=== PATIENT | female | born 1990 | race Caucasian/White ===

== ENCOUNTER → 2020-02-06 | Outpatient (CLI) | payer OTHER ==
--- NOTE | 2020-02-06 08:36 | CT ---
EXAMINATION TYPE: CT mastoid wo con DATE OF EXAM: 02/06/2020 COMPARISON: None HISTORY: 29 year-old female H70.12, Chronic Lt side mastoiditis CT DLP: 150 mGycm Automated exposure control for dose reduction was used. TECHNIQUE: Contiguous high-resolution axial scanning of the temporal bones performed without contras t. Coronal reformatted images obtained. FINDINGS: Limited assessment of the intracranial structures due to thin section noncontrast technique optimized for the temporal bones. The skull base appears normal. External auditory canals are patent. The middle ear cavities are well pneumatized. There is opacification of the mid and inferior left mastoid air cells. No erosions of the osseous sep ta. Minimal fluid within the inferior right mastoid air cells. There is some asymmetric sclerotic dolores nges to the left mastoid process. There is no abnormality of middle ear ossicles. The round and oval windows are normal. There is no abnormality of bony labyrinths. The vestibular and cochlear aqueducts are well visualized. The facial nerve canal is normal bilaterally. The internal auditory canal and meati are symmetrical bilaterally. There is no evidence of fractures. Trace mucosal thickening ethmoid air cells and left maxillary sinus. Reformatted images confirm above findings. IMPRESSION: 1. Opacification throughout the mid and inferior left mastoid air cells. Given asymmetric left-sided mastoid process sclerosis, findings suggest long-standing mastoiditis. No osseous erosions or destruc tion of the osseous septa. 2. Trace fluid within the inferior right mastoid air cells. 3. The middle ear cavities remain clear.
== END | disposition home or self-care (01) ==
LOC: RADCTMAIN 06:45
PROVIDERS: ATTEND Otolaryngology
DX: H93.8X2 Other specified disorders of left ear (principal); H70.12 Chronic mastoiditis, left ear
CPT/HCPCS: 70486

== ENCOUNTER 2020-07-14 20:16 | Emergency (ER) | payer OTHER ==
[2020-07-14 20:31] VITALS: RESP 18
[2020-07-14 21:45] LABS: Basophils # (A) 0.1 k/uL (0-0.2); Basophils % (A) 1 %; Eosinophils # (A) 0.2 k/uL (0-0.7); Eosinophils % (A) 2 %; HCT 45.2 % (34.0-46.0); HGB 14.2 gm/dL (11.4-16.0); Lymphocytes # (A) 2.1 k/uL (1.0-4.8); Lymphocytes % (A) 23 %; MCH 28.3 pg (25.0-35.0); MCHC 31.5 g/dL (31.0-37.0); MCV 89.7 fL (80.0-100.0); Mean Platelet Volume 8.6; Monocytes # (A) 0.5 k/uL (0-1.0); Monocytes % (A) 5 %; Neutrophils # (A) 6.4 k/uL (1.3-7.7); Neutrophils % (A) 67 %; Platelet Count 232 k/uL (150-450); RBC 5.03 m/uL (3.80-5.40); RDW 13.2 % (11.5-15.5); WBC 9.5 k/uL (3.8-10.6)
[2020-07-14 21:54] LABS: ALT 63 U/L (4-34); AST 52 U/L (14-36); African American GFR (CKD) >90 (>60 ml/min/1.73 sqM); Albumin 4.2 g/dL (3.5-5.0); Alkaline Phosphatase 73 U/L (38-126); Anion Gap 7 mmol/L; Blood Urea Nitrogen 11 mg/dL (7-17); Calcium 9.7 mg/dL (8.4-10.2); Carbon Dioxide 25 mmol/L (22-30); Chloride 107 mmol/L (98-107); Glucose 96 mg/dL (74-99); Lipase 53 U/L (23-300); Magnesium 1.8 mg/dL (1.6-2.3); Non-African American GFR(CKD) >90 (>60 ml/min/1.73 sqM); Potassium 4.3 mmol/L (3.5-5.1); Sodium 139 mmol/L (137-145); Total Bilirubin 0.7 mg/dL (0.2-1.3); Total Protein 7.2 g/dL (6.3-8.2)
--- NOTE | 2020-07-14 21:54 | XR ---
EXAMINATION TYPE: XR chest 2V DATE OF EXAM: 07/14/2020 COMPARISON: NONE HISTORY: Chest pain TECHNIQUE: FINDINGS: Heart and mediastinum are normal. Lungs are clear. Diaphragm is normal. Bony thorax appears normal. IMPRESSION: Normal chest.
[2020-07-14 21:58] LABS: D-Dimer 0.22 mg/L FEU (<0.60); Partial Thromboplastin Time 23.9 sec (22.0-30.0); Prothrombin Time 10.4 sec (9.0-12.0)
--- NOTE | 2020-07-14 22:38 | ED ---
Chest Pain HPI - General Chief Complaint: Chest Pain Stated Complaint: Chest Pain Source: patient Mode of arrival: ambulatory Limitations: no limitations - History of Present Illness Initial Comments: 29-year-old female past history of anxiety disorder presents emergency room with reported chest pain. Patient states that she will intermittently get chest pain. States that she has had 3 episodes this week. Chest pain started today earlier in the day. Describes it as left-sided which is sharp and shooting. Denies any provocative factors. Does have associated mild shortness of breath. No ripping or tearing sensation to her back. No previous history of cardiac disease. No lower externally swelling. No history of DVT or PE. No family history of blood clotting disorders. No family history of sudden cardiac . No concern for . No recent car rides. The patient is not on any control. No other alleviating, precipitating or modifying factors - Related Data Home Medications Medication Instructions Recorded Confirmed HYDROcodone/APAP 5-325MG [[place] 1 tab PO BID PRN 12/03/17 07/14/20 5-325] Allergies Allergy/AdvReac Type Severity Reaction Status Date / Time Penicillins Allergy Rash/Hives Verified 07/14/20 22:55 Review of Systems ROS Statement: Those systems with pertinent positive or pertinent negative responses have been documented in the HPI. ROS Other: All systems not noted in ROS Statement are negative. EKG Findings - EKG Comments: EKG Findings:: EKG demonstrates normal sinus rhythm with a ventricular rate of 91. MO interval 148. QRS 92. QTC 450. No acute ST segment elevations or depressions concerning for ischemic changes Past Medical History Past Medical History: No Reported History History of Any Multi-Drug Resistant Organisms: None Reported Past Surgical History: Adenoidectomy Past Psychological History: No Psychological Hx Reported Smoking Status: Former smoker Past Alcohol Use History: Occasional Past Drug Use History: None Reported General Exam Limitations: no limitations Course Vital Signs 07/14/20 07/14/20 07/14/20 20:27 21:00 22:00 Temperature 97.9 F Pulse Rate 90 75 74 Respiratory 18 18 18 Rate Blood Pressure 131/85 112/80 119/76 O2 Sat by Pulse 99 97 97 Oximetry 07/14/20 23:17 Temperature 98.0 F Pulse Rate 80 Respiratory 18 Rate Blood Pressure 126/72 O2 Sat by Pulse 97 Oximetry Chest Pain MDM - MDM Upon arrival patient is placed in room 17. There are history of physical exam is performed. Patient to continuous pulse ox and cardiac monitoring. 12-lead EKG is performed. Laboratory studies are conducted. D-dimer negative. Troponin negative. Chest x-ray demonstrates no acute process. Results are discussed the patient. Did recommend she follow up with her primary care doctor for Holter monitoring and echo. Patient understood this. Return to the emergency room for any new or worsening symptoms. Patient given written and verbal discharge instructions and discharged home in stable condition Disposition Clinical Impression: Chest pain Disposition: HOME SELF-CARE Condition: Stable Instructions (If sedation given, give patient instructions): Chest Pain (ED) Additional Instructions: I recommend you follow up with primary care doctor within 2-4 days. You should have Holter monitoring and echo of her heart. Return to the emergency room for any new or worsening symptoms Is patient prescribed a controlled substance at d/c from ED?: No Referrals: Stanford Moya MD [Primary Care Provider] - 1-2 days Time of Disposition: 22:45
[2020-07-14 23:21] VITALS: BP 126/72; PULSE 80; TEMP 98
== END 2020-07-14 23:17 | disposition home or self-care (01) ==
LOC: EC 20:16
DX: R07.9 Chest pain, unspecified (principal); Z88.0 Allergy status to penicillin; Z87.891 Personal history of nicotine dependence
CPT/HCPCS: 36415; 71046; 80053; 83690; 83735; 84484; 85025; 85379; 85610; 85730; 93005; 99285

== ENCOUNTER 2021-01-26 23:10 | Emergency (ER) | payer OTHER ==
[2021-01-26 23:17] VITALS: BP 148/96; PULSE 75; RESP 18; TEMP 99.3
--- NOTE | 2021-01-27 00:32 | ED ---
Head Injury HPI - General Chief complaint: Head Injury Stated complaint: Head Injury, Headache Time Seen by Provider: 01/26/21 23:31 Source: patient Mode of arrival: ambulatory Limitations: no limitations - History of Present Illness Initial comments: 30-year-old female patient presents to the emergency department today for evaluation of headache after head injury. States that around 8 PM this evening she hit her head on the garcia window of her vehicle. States that she felt disoriented and had difficulty focusing her vision after the injury. States when she got home she developed a headache that has gradually worsened. She took a norco without relief. She reports nausea no vomiting. Denies numbness, tingling, weakness to her extremities. Denies any dizziness or weakness. - Related Data Home Medications Medication Instructions Recorded Confirmed HYDROcodone/APAP 5-325MG [[place] 1 tab PO BID PRN 12/03/17 07/14/20 5-325] Allergies/Adverse reactions: Allergies Allergy/AdvReac Type Severity Reaction Status Date / Time Penicillins Allergy Rash/Hives Verified 01/26/21 23:17 Review of Systems ROS Statement: Those systems with pertinent positive or pertinent negative responses have been documented in the HPI. ROS Other: All systems not noted in ROS Statement are negative. Past Medical History Past Medical History: No Reported History History of Any Multi-Drug Resistant Organisms: None Reported Past Surgical History: Adenoidectomy Past Psychological History: No Psychological Hx Reported Smoking Status: Former smoker Past Alcohol Use History: Occasional Past Drug Use History: Marijuana General Exam Limitations: no limitations General appearance: alert, in no apparent distress, other (This is a well- developed, well-nourished adult female patient in no acute distress.) Eye exam: Present: normal appearance, PERRL, EOMI. Absent: scleral icterus, conjunctival injection, nystagmus, periorbital swelling ENT exam: Present: normal exam, normal oropharynx, mucous membranes moist Neck exam: Present: normal inspection, full ROM, other (Nontender, no step-off, no deformity to firm midline palpation of the posterior cervical spine. Full range of motion without pain or limitation.). Absent: tenderness, meningismus, lymphadenopathy Cardiovascular Exam: Present: regular rate, normal rhythm, normal heart sounds. Absent: systolic murmur, diastolic murmur, rubs, gallop, clicks GI/Abdominal exam: Present: soft, normal bowel sounds. Absent: distended, tenderness, guarding, rebound, rigid Neurological exam: Present: alert, oriented X3, CN II-XII intact Expanded Speech: Present: fluid speech Cranial nerves: EOM's Intact: Normal, Nystagmus: Normal Motor strength exam: RUE: 5, LUE: 5, RLE: 5, LLE: 5 Eye Response: (4) open spontaneously Motor Response: (6) obeys commands Verbal Response: (5) oriented Shruthi Total: 15 Psychiatric exam: Present: normal affect, normal mood Skin exam: Present: warm, dry, intact, normal color. Absent: rash Course Vital Signs 01/26/21 23:13 Temperature 99.3 F Pulse Rate 75 Respiratory 18 Rate Blood Pressure 148/96 O2 Sat by Pulse 97 Oximetry Medical Decision Making - Medical Decision Making 30-year-old female patient presents to the emergency department today for evaluation after head injury. She is reporting headache, nausea, vision difficulty. Physical examination is unremarkable. She is neurologically intact. CT brain was negative. She is given dose of Toradol. She'll be discharged home to follow-up with her primary care physician for recheck in 1-2 days. She is given concussion precautions. Return parameters discussed in detail. She verbalizes understanding and agrees with this plan. I attending is Dr. Pittman. - Radiology Data Radiology results: report reviewed, image reviewed CT brain without contrast was obtained. Report was reviewed in its entirety. Impression by Dr. Bay shows negative unenhanced head CT scan. Disposition Clinical Impression: Concussion Disposition: HOME SELF-CARE Condition: Good Instructions (If sedation given, give patient instructions): Concussion (ED) Additional Instructions: Rest. Increase fluids. Take Tylenol Motrin for pain control. Follow-up with the primary care physician for recheck in 1-2 days. Return for any new, worsening, or concerning symptoms. Is patient prescribed a controlled substance at d/c from ED?: No Referrals: Stanford Moya MD [Primary Care Provider] - 1-2 days Time of Disposition: 00:48
--- NOTE | 2021-01-27 00:43 | CT ---
EXAMINATION TYPE: CT brain wo con DATE OF EXAM: 01/27/2021 COMPARISON: None HISTORY: hit right side of head on tailgate. headache. no prior on PACS CT DLP: 1076.4 mGycm Automated exposure control for dose reduction was used. Images obtained of the brain without contrast. Ventricles have normal size. There is no mass effect nor midline shift. There is no sign of intracran ial hemorrhage. Calvarium is intact. There is previous surgery left mastoid sinus noted. IMPRESSION: Negative unenhanced head CT scan.
[2021-01-27] MEDS ORDERED: KETOROLAC 15 MG/ML 1 ML VIAL IM STA (00:46)
== END 2021-01-27 00:59 | disposition home or self-care (01) ==
LOC: EC 23:10
DX: S06.0X9A Concussion with loss of consciousness of unspecified duration, initial encounter (principal); F12.90 Cannabis use, unspecified, uncomplicated; Z87.891 Personal history of nicotine dependence; Z88.0 Allergy status to penicillin; W22.8XXA Striking against or struck by other objects, initial encounter
CPT/HCPCS: 99283; 70450; 96372; J1885

== ENCOUNTER 2021-04-25 09:26 | Emergency (ER) | payer OTHER ==
[2021-04-25] MEDS ORDERED: SODIUM CHLORIDE 0.9% 1,000 ML IV STA (10:05)
[2021-04-25] MEDS ORDERED: ONDANSETRON 4 MG/2 ML VIAL IVP STA (10:05)
[2021-04-25] MEDS ORDERED: KETOROLAC 15 MG/ML 1 ML VIAL IVP STA (10:05)
[2021-04-25] MEDS ORDERED: MECLIZINE 12.5 MG TAB PO STA (10:05)
--- NOTE | 2021-04-25 10:08 | ED ---
General Adult HPI - General Chief complaint: Dizziness Stated complaint: Dizziness, nausea Time Seen by Provider: 04/25/21 09:36 Source: patient, RN notes reviewed Mode of arrival: wheelchair Limitations: no limitations - History of Present Illness Initial comments: 30-year-old female presents emergency department with chief complaint of dizziness. Patient states symptoms started last night. Patient states she was nauseated started having room spinning this. Patient states that she does have some achiness all over mild congestion. Patient states that she believes this is from prior and issues. She has no complaints of headache currently no julissa rred. Patient does admit to nausea no recent vomiting episode. No fevers or chills denies any chance no localized abdominal pain states she has mild cramping related to her mental cycle. - Related Data Home Medications Medication Instructions Recorded Confirmed HYDROcodone/APAP 5-325MG [[place] 1 tab PO BID PRN 12/03/17 04/25/21 5-325] Previous Rx's Medication Instructions Recorded Meclizine [Antivert] 25 mg PO TID PRN #15 tab 04/25/21 Ondansetron Odt [Zofran Odt] 4 mg PO Q8HR PRN #10 tab 04/25/21 Allergies Allergy/AdvReac Type Severity Reaction Status Date / Time Penicillins Allergy Rash/Hives Verified 04/25/21 10:31 Review of Systems ROS Statement: Those systems with pertinent positive or pertinent negative responses have been documented in the HPI. ROS Other: All systems not noted in ROS Statement are negative. Past Medical History Past Medical History: No Reported History History of Any Multi-Drug Resistant Organisms: None Reported Past Surgical History: Adenoidectomy, Ear Surgery Additional Past Surgical History / Comment(s): mastoidectomy typanial plastomy and eustanial tube dilation lt Past Psychological History: No Psychological Hx Reported Smoking Status: Former smoker Past Alcohol Use History: Occasional Past Drug Use History: Marijuana General Exam Limitations: no limitations, physical limitation General appearance: alert, in no apparent distress Head exam: Present: atraumatic, normocephalic, normal inspection Eye exam: Present: normal appearance, PERRL, EOMI. Absent: scleral icterus, conjunctival injection, periorbital swelling ENT exam: Present: normal exam, normal oropharynx, mucous membranes moist Neck exam: Present: normal inspection, full ROM. Absent: tenderness, meningismus, lymphadenopathy Respiratory exam: Present: normal lung sounds bilaterally. Absent: respiratory distress, wheezes, rales, rhonchi, stridor Cardiovascular Exam: Present: regular rate, normal rhythm, normal heart sounds. Absent: systolic murmur, diastolic murmur, rubs, gallop, clicks GI/Abdominal exam: Present: soft, normal bowel sounds. Absent: distended, tenderness, guarding, rebound, rigid Neurological exam: Present: alert, oriented X3, CN II-XII intact, reflexes normal. Absent: motor sensory deficit Skin exam: Present: warm, dry, intact, normal color. Absent: rash Course Vital Signs 04/25/21 04/25/21 09:30 10:30 Temperature 98.1 F Pulse Rate 106 H 89 Respiratory 18 20 Rate Blood Pressure 122/88 124/79 O2 Sat by Pulse 97 97 Oximetry Medical Decision Making - Medical Decision Making 30-year-old female presented from for dizziness. Symptoms are improving at and antiemetics. Symptoms secondary to vertigo. Labs unremarkable patient disch arged in stable condition. - Lab Data Result diagrams: 04/25/21 10:06 04/25/21 10:06 Lab Results 04/25/21 04/25/21 04/25/21 Range/Units 10:06 10:06 10:29 WBC 10.5 (3.8-10.6) k/uL RBC 4.96 (3.80-5.40) m/uL Hgb 15.4 (11.4-16.0) gm/dL Hct 46.5 H (34.0-46.0) % MCV 93.6 (80.0-100.0) fL MCH 31.0 (25.0-35.0) pg MCHC 33.2 (31.0-37.0) g/dL RDW 12.7 (11.5-15.5) % Plt Count 178 (150-450) k/uL MPV 10.2 Neutrophils % 91 % Lymphocytes % 4 % Monocytes % 4 % Eosinophils % 1 % Basophils % 0 % Neutrophils # 9.6 H (1.3-7.7) k/uL Lymphocytes # 0.4 L (1.0-4.8) k/uL Monocytes # 0.4 (0-1.0) k/uL Eosinophils # 0.1 (0-0.7) k/uL Basophils # 0.0 (0-0.2) k/uL Sodium 138 (137-145) mmol/L Potassium 4.7 (3.5-5.1) mmol/L Chloride 111 H (98-107) mmol/L Carbon Dioxide 18 L (22-30) mmol/L Anion Gap 9 mmol/L BUN 11 (7-17) mg/dL Creatinine 0.69 (0.52-1.04) mg/dL Est GFR (CKD-EPI)AfAm >90 (>60 ml/min/1.73 sqM) Est GFR (CKD-EPI)NonAf >90 (>60 ml/min/1.73 sqM) Glucose 116 H (74-99) mg/dL Calcium 9.1 (8.4-10.2) mg/dL Magnesium 1.7 (1.6-2.3) mg/dL Total Bilirubin 1.8 H (0.2-1.3) mg/dL AST 35 (14-36) U/L ALT 27 (4-34) U/L Alkaline Phosphatase 79 (38-126) U/L Total Protein 7.4 (6.3-8.2) g/dL Albumin 4.1 (3.5-5.0) g/dL Urine Color Urine Appearance (Clear) Urine pH (5.0-8.0) Ur Specific [place] (1.001-1.035) Urine Protein (Negative) Urine Glucose (UA) (Negative) Urine Ketones (Negative) Urine Blood (Negative) Urine Nitrite (Negative) Urine Bilirubin (Negative) Urine Urobilinogen (<2.0) mg/dL Ur Leukocyte Esterase (Negative) Urine RBC (0-5) /hpf Urine WBC (0-5) /hpf Ur Squamous Epith Cells (0-4) /hpf Urine Bacteria (None) /hpf Urine Mucus (None) /hpf Urine HCG, Qual (Not Detectd) Coronavirus (PCR) Not Detected (Not Detectd) 04/25/21 04/25/21 Range/Units 10:45 10:45 WBC (3.8-10.6) k/uL RBC (3.80-5.40) m/uL Hgb (11.4-16.0) gm/dL Hct (34.0-46.0) % MCV (80.0-100.0) fL MCH (25.0-35.0) pg MCHC (31.0-37.0) g/dL RDW (11.5-15.5) % Plt Count (150-450) k/uL MPV Neutrophils % % Lymphocytes % % Monocytes % % Eosinophils % % Basophils % % Neutrophils # (1.3-7.7) k/uL Lymphocytes # (1.0-4.8) k/uL Monocytes # (0-1.0) k/uL Eosinophils # (0-0.7) k/uL Basophils # (0-0.2) k/uL Sodium (137-145) mmol/L Potassium (3.5-5.1) mmol/L Chloride (98-107) mmol/L Carbon Dioxide (22-30) mmol/L Anion Gap mmol/L BUN (7-17) mg/dL Creatinine (0.52-1.04) mg/dL Est GFR (CKD-EPI)AfAm (>60 ml/min/1.73 sqM) Est GFR (CKD-EPI)NonAf (>60 ml/min/1.73 sqM) Glucose (74-99) mg/dL Calcium (8.4-10.2) mg/dL Magnesium (1.6-2.3) mg/dL Total Bilirubin (0.2-1.3) mg/dL AST (14-36) U/L ALT (4-34) U/L Alkaline Phosphatase (38-126) U/L Total Protein (6.3-8.2) g/dL Albumin (3.5-5.0) g/dL Urine Color Yellow Urine Appearance Cloudy H (Clear) Urine pH 5.5 (5.0-8.0) Ur Specific [place] 1.027 (1.001-1.035) Urine Protein Trace H (Negative) Urine Glucose (UA) Negative (Negative) Urine Ketones 1+ H (Negative) Urine Blood Moderate H (Negative) Urine Nitrite Negative (Negative) Urine Bilirubin Negative (Negative) Urine Urobilinogen <2.0 (<2.0) mg/dL Ur Leukocyte Esterase Negative (Negative) Urine RBC 3 (0-5) /hpf Urine WBC 2 (0-5) /hpf Ur Squamous Epith Cells 7 H (0-4) /hpf Urine Bacteria Rare H (None) /hpf Urine Mucus Moderate H (None) /hpf Urine HCG, Qual Not Detected (Not Detectd) Coronavirus (PCR) (Not Detectd) Disposition Clinical Impression: Vertigo Disposition: HOME SELF-CARE Condition: Stable Instructions (If sedation given, give patient instructions): Vertigo (ED) Additional Instructions: Please return to the Emergency Department if symptoms worsen or any other concerns. Prescriptions: Meclizine [Antivert] 25 mg PO TID PRN #15 tab PRN Reason: Vertigo Ondansetron Odt [Zofran Odt] 4 mg PO Q8HR PRN #10 tab PRN Reason: Nausea Is patient prescribed a controlled substance at d/c from ED?: No Referrals: Stanford Moya MD [Primary Care Provider] - 1-2 days Time of Disposition: 11:33
[2021-04-25 10:27] LABS: ALT 27 U/L (4-34); African American GFR (CKD) >90 (>60 ml/min/1.73 sqM); Anion Gap 9 mmol/L; Blood Urea Nitrogen 11 mg/dL (7-17); Calcium 9.1 mg/dL (8.4-10.2); Carbon Dioxide 18 mmol/L (22-30); Chloride 111 mmol/L (98-107); Glucose 116 mg/dL (74-99); Non-African American GFR(CKD) >90 (>60 ml/min/1.73 sqM); Sodium 138 mmol/L (137-145); Total Bilirubin 1.8 mg/dL (0.2-1.3)
[2021-04-25 10:34] LABS: Basophils % (A) 0 %; Eosinophils # (A) 0.1 k/uL (0-0.7); Eosinophils % (A) 1 %; HCT 46.5 % (34.0-46.0); HGB 15.4 gm/dL (11.4-16.0); Lymphocytes # (A) 0.4 k/uL (1.0-4.8); Lymphocytes % (A) 4 %; MCHC 33.2 g/dL (31.0-37.0); MCV 93.6 fL (80.0-100.0); Mean Platelet Volume 10.2; Monocytes # (A) 0.4 k/uL (0-1.0); Monocytes % (A) 4 %; Neutrophils # (A) 9.6 k/uL (1.3-7.7); Neutrophils % (A) 91 %; Platelet Count 178 k/uL (150-450); RBC 4.96 m/uL (3.80-5.40); RDW 12.7 % (11.5-15.5); WBC 10.5 k/uL (3.8-10.6)
[2021-04-25 10:42] LABS: Potassium 4.7 mmol/L (3.5-5.1)
[2021-04-25 10:43] LABS: AST 35 U/L (14-36); Albumin 4.1 g/dL (3.5-5.0); Alkaline Phosphatase 79 U/L (38-126); Magnesium 1.7 mg/dL (1.6-2.3); Total Protein 7.4 g/dL (6.3-8.2)
[2021-04-25] MEDS ORDERED: diphenhydrAMINE 50 MG/ML 1 ML VIAL IVP STA (10:49)
[2021-04-25] MEDS ORDERED: METOCLOPRAMIDE 5 MG/ML 2 ML VIAL IVP STA (10:49)
[2021-04-25 10:56] LABS: Appearance,Urine Cloudy (Clear); Bacteria,Urine Rare /hpf; Bilirubin,Urine Negative (Negative); Blood,Urine Moderate (Negative); Color,Urine Yellow; Glucose,Urine (UA) Negative (Negative); Ketones,Urine 1+ (Negative); Leukocyte Esterase,Urine Negative (Negative); Mucus,Urine Moderate /hpf; Nitrite,Urine Negative (Negative); PH, Urine 5.5 (5.0-8.0); Protein,Urine Trace (Negative); RBC,Urine 3 /hpf (0-5); Specific Gravity,Urine 1.027 (1.001-1.035); Squamous Epithelial Cell,Urine 7 /hpf (0-4); Urobilinogen,Urine <2.0 mg/dL (<2.0); WBC,Urine 2 /hpf (0-5)
[2021-04-25 12:05] VITALS: BP 125/72; PULSE 95; RESP 18; TEMP 99.3
== END 2021-04-25 12:05 | disposition home or self-care (01) ==
LOC: EC 09:26
DX: R42 Dizziness and giddiness (principal); F12.90 Cannabis use, unspecified, uncomplicated; Z72.89 Other problems related to lifestyle; Z87.891 Personal history of nicotine dependence
CPT/HCPCS: 36415; 80053; 81001; 81025; 83735; 85025; 87635; 93005; 96361; 96374; 96375; 99284

== ENCOUNTER → 2021-04-30 | Outpatient (CLI) | payer OTHER ==
--- NOTE | 2021-04-30 16:39 | XR ---
Limited skull HISTORY: G 44.309 2 views of the skull, correlation CT scan dated 01/27/2021 Bone mineralization is maintained. There is no radiopaque foreign body evident. IMPRESSION: No radiopaque foreign body
== END | disposition home or self-care (01) ==
LOC: RADXRMAIN 16:11
PROVIDERS: ATTEND Psychiatry & Neurology Neurology
DX: G44.309 Post-traumatic headache, unspecified, not intractable (principal)
CPT/HCPCS: 70250

== ENCOUNTER → 2021-05-10 | Outpatient (CLI) | payer OTHER ==
--- NOTE | 2021-05-10 14:58 | MR ---
EXAMINATION TYPE: MR brain wo con DATE OF EXAM: 05/10/2021 COMPARISON: None HISTORY: Post traumatic headache Multiplanar multiecho imaging of the brain without contrast. Ventricles have normal size. There is no mass effect or midline shift. There is no sign of intracrani al hemorrhage. [place]-white matter structures have normal signal pattern. There is no evidence of cereb ral edema. Diffusion images show no evidence of an acute infarct. There is some increased signal on t he T2 images in the anterior left side of the baljeet on the inferior aspect adjacent to the medulla. Th is is probably volume averaging.. Corpus callosum appears normal. Sella turcica appears normal. There is no evidence of orbital mass. IMPRESSION: Negative MR scan of the brain.
== END | disposition home or self-care (01) ==
LOC: RADMRIMAIN 08:55
PROVIDERS: ATTEND Psychiatry & Neurology Neurology
DX: G44.309 Post-traumatic headache, unspecified, not intractable (principal)
CPT/HCPCS: 70551